=== PATIENT | female | born 1965 | race Caucasian/White ===

== ENCOUNTER → 2019-04-08 15:03 | Outpatient (CLI) | payer OTHER, SELFPAY ==
--- NOTE | 2019-04-08 | DI.MRI.S_ITS ---
PROCEDURE: MR HIP RT WO CON INDICATIONS: Unilateral primary osteoarthritis, right hip pain TECHNIQUE: Noncontrast coronal T1 spin echo and STIR through the bony pelvis. Coronal and axial T2 fast spin echo with fat saturation, sagittal T1 spin echo, and oblique axial T2 fast spin echo with fat saturation through the hip. COMPARISON: [facility] [place], [place], XR PELVIS WITH LATERAL HIP RIGHT, 04/06/2019, 11:25. FINDINGS: Image quality: Excellent. Bones and joints: Bone marrow of the pelvic ring and proximal femurs demonstrates normal overall signal. No intraosseous lesions or fractures. No avascular necrosis of the femoral heads. There is marked thinning of the right medial acetabular wall without a discrete fracture. The visualized lower lumbar spine appears normally aligned. Tendons and ligaments: The gluteus medius and minimus tendons appear intact, with mild tendinopathy and peritendinitis distally. The nearby proximal iliotibial band also appears intact. The iliopsoas tendon appears intact, without adjacent bursal fluid collections or evidence for impingement syndrome. The origin of the hamstring tendon is intact at the ischial tuberosity, as well as the associated sacrotuberous ligament. There is mild peritendinous edema along the proximal hamstring tendons. The straight and reflected heads of the rectus femoris muscle origin appear intact, as well as the conjoint tendon. The ligamentum teres appears thickened with minimal partial tearing at its foveal attachment. Labrum and cartilage: There is a linear partial tear of the anterosuperior labrum as well as mild degenerative tearing. There is also suspected small tear in the posterosuperior labrum. Cartilage surface of the femoral head demonstrates mild superior thinning. The alpha angle of the femur is within normal limits at less than 55 degrees. Soft tissues: Visualized muscles demonstrate normal bulk and internal signal. Quadratus femoris muscle demonstrates no internal edema to suggest ischiofemoral impingement. The proximal sciatic neurovascular bundle appears normal adjacent to the hamstring tendons. No free pelvic fluid. Bladder wall thickness is normal. Genitourinary structures and bowel loops appear normal where visualized. IMPRESSION: 1. Mild tearing of the anterosuperior labrum as well as suspected mild tearing of the posterosuperior labrum. 2. Thickening of the ligamentum teres suggestive of a prior sprain with minimal partial tearing at its foveal attachment. 3. Marked thinning of the medial acetabulum without a discrete fracture. Dictated by: Andres Evangelista M.D. on 04/08/2019 at 16:10 Approved by: Andres Evangelista M.D. on 04/08/2019 at 16:17
== END ==
PROVIDERS: Family Provider Family Medicine; PCP Family Medicine; Visit Provider Orthopaedic Surgery
DX: M16.11 Unilateral primary osteoarthritis, right hip (principal); M25.551 Pain in right hip; S73.191A Other sprain of right hip, initial encounter
CPT/HCPCS: 73721

== ENCOUNTER → 2021-04-09 11:38 | Outpatient (CLI) | payer OTHER, SELFPAY ==
--- NOTE | 2021-04-09 | DI.MRI.S_ITS ---
PROCEDURE: MR LUMBAR SPINE WO CON INDICATIONS: Radiculopathy, lumbar region TECHNIQUE: Noncontrast sagittal T1 spin echo and T2 fast echo, sagittal STIR, axial T1 and T2 fast spin echo through the lumbar spine. In cases with scoliosis, additional coronal T2 fast spin echo may be performed. COMPARISON: None. FINDINGS: Image quality: Excellent. Alignment and Curvature: There is normal bony alignment. Bone Marrow: Multilevel degenerative endplate sclerosis and spurring. Diffuse facet arthropathy. No acute fracture Spinal Cord: Conus medullaris terminates at the L1 level. Visualized cord demonstrates normal signal and size. Paraspinous Soft Tissues: No paravertebral masses. Posterior annular fissure at L4-L5 and L5-S1. T12-L1: Normal appearance. L1-L2: Normal appearance. L2-L3: Normal appearance. L3-L4: Mild canal narrowing. Partial effacement of both lateral recesses with bilaterally symmetric appearance. Mild bilateral foraminal narrowing. L4-L5: Mild dorsal epidural lipomatosis. Moderate canal narrowing. Partial effacement of both lateral recesses with bilaterally symmetric appearance. Mild right foraminal narrowing. Moderate left foraminal stenosis. L5-S1: No canal stenosis. Lateral recesses appear grossly patent. Moderate right foraminal narrowing with questionable nerve root compression [id number] left foraminal stenosis. IMPRESSION: Lower lumbar spondylosis and facet arthropathy Moderate L4-L5 canal narrowing. Moderate right L5-S1 foraminal stenosis. Dictated by: Marcelino Llanos M.D. on 04/09/2021 at 12:32 Approved by: Marcelino Llanos M.D. on 04/09/2021 at 12:41
== END ==
PROVIDERS: Family Provider Family Medicine; PCP Nurse Practitioner Family; Referring Provider Physical Medicine & Rehabilitation; Visit Provider Physical Medicine & Rehabilitation
DX: M47.26 Other spondylosis with radiculopathy, lumbar region (principal); M48.061 Spinal stenosis, lumbar region without neurogenic claudication; M48.07 Spinal stenosis, lumbosacral region
CPT/HCPCS: 72148

== ENCOUNTER → 2021-05-13 10:23 | Outpatient (CLI) | payer OTHER, SELFPAY ==
--- NOTE | 2021-05-13 | DI.MG.S_ITS ---
BILATERAL DIGITAL SCREENING MAMMOGRAM 3D/2D WITH CAD: 05/13/2021 CLINICAL: Routine screening. Family history of breast cancer. Comparison is made to exams dated: 10/27/2019 mammogram - outside facility, 03/31/2018 mammogram, and 02/23/2017 mammogram - outside location. There are scattered fibroglandular elements in both breasts. Current study was also evaluated with a Computer Aided Detection (CAD) system. No significant masses, calcifications, or other findings are seen in either breast. There has been no significant interval change. IMPRESSION: NEGATIVE There is no mammographic evidence of malignancy. A 1 year screening mammogram is recommended. This exam was interpreted at Station ID: [id number]. NOTE: For mammograms, a report in lay terms will be sent to the patient. Approximately 15% of breast malignancies will not be visualized mammographically. In the management of a palpable breast mass, a negative mammogram must not discourage biopsy of a clinically suspicious lesion. Electronically Signed By: Jacoby Hunt M.D., jr/bhanu:05/13/2021 14:03:44 letter sent: Normal Exam ACR BI-RADS Category 1: Negative [id number]
== END ==
PROVIDERS: Family Provider Family Medicine; PCP Nurse Practitioner Family; Referring Provider Nurse Practitioner Family; Visit Provider Nurse Practitioner Family
DX: Z12.31 Encounter for screening mammogram for malignant neoplasm of breast (principal); Z80.3 Family history of malignant neoplasm of breast
CPT/HCPCS: 77063; 77067

== ENCOUNTER → 2021-08-12 08:46 | Outpatient (CLI) | payer OTHER, SELFPAY ==
[2021-08-12 10:37] LABS: COVID19 -Nasal RAPID Negative (Negative)
== END ==
PROVIDERS: Family Provider Family Medicine; PCP Nurse Practitioner Family; Visit Provider Nurse Practitioner Family
DX: Z20.822 Contact with and (suspected) exposure to COVID-19 (principal)
CPT/HCPCS: 87635; C9803

== ENCOUNTER 2021-08-14 13:23 | Day surgery (SDC) | payer OTHER, SELFPAY ==
[2021-08-12 13:00] VITALS: BMI 25.4
[2021-08-14] VITALS (11 sets, daily range): BP systolic 138–166; BP diastolic 77–92; PULSE 70–110; RESP 11–18; TEMP 36.2–36.9; O2SAT 94–98; BMI 26.9
--- NOTE | 2021-08-14 | DI.RAD.S_ITS ---
PROCEDURE: XR LUMBAR SPINE 2-3V INDICATIONS: L4-5 LAMINECTOMY TECHNIQUE: 2 views of the lumbar spine were acquired. COMPARISON: None. FINDINGS: Intraoperative localizer at the left L4 and L5 lamina. Lower lumbar spine degenerative disc changes. IMPRESSION: Intraoperative localizer at the left L4 and L5 lamina. Dictated by: Terri Rosa MD, PhD on 08/14/2021 at 17:12 Approved by: Terri Rosa MD, PhD on 08/14/2021 at 17:13
[2021-08-14] MEDS: LACTATED RINGERS 1,000 ML 42 ML IV (14:07)
--- NOTE | 2021-08-14 15:08 | SUR.OPER ---
Prone on spine table, head in foam head support, padded chest and pelvic supports, gel pad at knees, lower legs supported by pillows; nipples, genitalia and toes free of pressure, arms secured on foam padded arm boards at <90 degrees abduction. Tape over blanket at thigh secured to table.
--- NOTE | 2021-08-14 15:09 | PM.PREOP ---
Pre-operative Note COVID-19 COVID-19 status: Negative Result date/Date tested (Pos, Neg/Pending): 08/13/21 Criteria for continued procedure: Expected advancement of disease process, Possibility delay results in more complex future surgery or treatment, Increased loss of function, Continuing or worsening of significant or severe pain, Deterioration of the patient's condition or overall health and Delay expected to result in less-positive ultimate med/surg outcome Interval Note History & Physical reviewed/Exam performed by Physician: Yes Changes to H&P: No
--- NOTE | 2021-08-14 15:12 | P.OP_ITS ---
Operative Date/Time/Diagnoses Date of procedure: 08/14/21 Time of procedure: 16:00 Pre-op diagnosis: 1. Lumbar spinal stenosis with neurogenic claudication 2. Lumbar spondylosis with radiculopathy Post-op diagnosis: same Procedure & Clinicians Procedure: 1. L4-5 lumbar laminectomy with partial facetecomy for decompression of spinal nerves 2. Utilization of microsurgical technique and operating microscope Same procedure as scheduled: Yes Indications: Patient has been having chronic back pain and worsening lumbar radiculopathy. Patient failed multiple conservative management with worsening pain weakness and numbness in her lower extremity. Patient has been having difficulty performing activity of daily living. After discussing risks benefits of treatment options, patient elected proceed with surgery. Surgeon: Michaelle Crowley Climate Change Risk Assessor: Reva Summers Click Yes if Unassisted: No Anesthesia Type: General Operative Notes Closure Type: primary Estimated Blood Loss (mL): 5 Blood products transfused: none Procedure in detail: Patient was seen in the preoperative area. Risks and benefits of the surgery was discussed with the patient. Informed consent was obtained from the patient and placed in the chart. Surgical site was marked. Patient was taken to the operative room. General anesthesia was administered. Prophylactic antibiotic was given to the patient less than 30 min before the incision was made. Patient was placed into a prone position on the Jay table. Patient's back was then prep ped and draped in the sterile fashion. Time-out was performed at this time. Using AP and lateral C-arm imaging the interval between L4-5 was identified and marked on patient's back. A 1 inch incision 1 in from midline was made on the right side. The fascia was incised in line with skin incision. Globus MARS retractors was placed inside the incision and docked onto the L4 lamina. Using microsurgical technique and operating microscope, a L4 laminectomy was performed using a Kerrison rongeur. Liagamentum flavum was resected at the site of the laminotomy. Patient was found have significant amount of hypertrophied ligamentum flavum which was carefully resected to decompress the central spinal canal as well as the bilateral lateral recess. Either side of the dura was exposed. Bilateral partial facetcomies was performed to further decompress the lateral recess. After the laminectomy was completed, the area medial lateral superior and inferior to the area of the laminectomy was inspected and explored using a micro curette. No other impinging structure was identified. The wound was then irrigated with sterile normal saline. 40 mg Depo-Medrol was placed into the epidural space. The deep fascia was closed with 1-0 Vicryl. The subcutaneous tissue was closed with 2-0 Vicryl. The skin was closed with 4-0 Monocryl. Patient tolerated the procedure well. There were no complications. Patient was transferred recovery room in stable condition. Complications: none Post-operative Condition: stable Disposition: PACU Plan for aftercare: Outpatient with bed
[2021-08-14] MEDS: CEFAZOLIN 2 GM/20 ML SYRINGE IV (16:04)
[2021-08-14] MEDS: BUPIVACAINE 0.25% (PF) 60 ML, EPINEPHrine 0.3 MG INJ (16:34)
[2021-08-14] MEDS: SODIUM CHLORIDE 0.9% 1,000 ML 100 ML IV (18:14)
[2021-08-14] MEDS: OXYCODONE IR 5 MG TABLET PO ×2 (18:16→21:19)
--- NOTE | 2021-08-14 18:21 | PC.NURSE ---
Rec'd pt from PACU to rm 213 at 1800. Pt stood and walked from stretcher to bed with CGA. Reports chronic left leg numbness has improved. Pt reports pain 6/10 on 0-10 pain scale. RA. Back Dsg CDI. Pt reports being thirsty, hungry. HTN noted. Administered prn oxycodone and provided dinner tray to pt. Will reassess.
[2021-08-14] MEDS: DOCUSATE 100 MG CAPSULE PO (20:27)
[2021-08-14] MEDS: SENNOSIDES 8.6 MG TABLET 17.2 MG PO (20:27)
[2021-08-14] MEDS: ATORVASTATIN 20 MG TABLET 10 MG PO (20:27)
[2021-08-14] MEDS: GABAPENTIN 300 MG CAPSULE PO (20:27)
[2021-08-14] MEDS: FLUVOXAMINE 100 MG 100 EACH PO (21:01)
[2021-08-14] MEDS: hydrOXYzine pamoate 25 MG CAPSULE PO (21:18)
[2021-08-15] MEDS: CEFAZOLIN 2 GM/20 ML SYRINGE IV ×2 (00:38→07:37)
[2021-08-15] MEDS: OXYCODONE IR 5 MG TABLET PO ×4 (00:55→11:58)
[2021-08-15 01:20] VITALS: BP 117/69; PULSE 68; RESP 17; TEMP 36.5; O2SAT 95
[2021-08-15] MEDS: SODIUM CHLORIDE 0.9% 1,000 ML 100 ML IV (04:04)
[2021-08-15] MEDS: hydrOXYzine pamoate 25 MG CAPSULE PO ×3 (04:04→11:59)
[2021-08-15 05:00] VITALS: BP 110/68; PULSE 73; RESP 17; TEMP 36.1; O2SAT 95
[2021-08-15] MEDS: PANTOPRAZOLE DR 40 MG TABLET PO (06:40)
--- NOTE | 2021-08-15 07:08 | P.DS_ITS ---
History of Present Illness History of Present Illness Date Patient Seen: 08/15/21 Time Patient Seen: 08:09 Chief complaint: SDC Narrative: Operative Date/Time/Diagnoses Date of procedure: 08/14/21 Time of procedure: 16:00 Pre-op diagnosis: 1. Lumbar spinal stenosis with neurogenic claudication 2. Lumbar spondylosis with radiculopathy Post-op diagnosis: same Procedure & Clinicians Procedure: 1. L4-5 lumbar laminectomy with partial facetecomy for decompression of spinal nerves 2. Utilization of microsurgical technique and operating microscope Same procedure as scheduled: Yes Indications: Patient has been having chronic back pain and worsening lumbar radiculopathy. Patient failed multiple conservative management with worsening pain weakness and numbness in her lower extremity.? Patient has been having difficulty performing activity of daily living.? After discussing risks benefits of treatment options, patient elected proceed with surgery. Surgeon: Michaelle Crowley Media Production Support Manager: Reva Summers Click Yes if Unassisted: No Anesthesia Type: General Operative Notes Closure Type: primary Estimated Blood Loss (mL): 5 Blood products transfused: none Discharge Providers Provider Discharge Date: 08/15/21 Primary care physician: HAYLEY Mckeon Consults: 08/14/21 17:40 Consult to Occupational Therapy Evaluate & Treat Comment: Physician Instructions: Evaluate and treat Consult to Physical Therapy Evaluate & Treat Comment: Physician Instructions: Evaluate and Treat Discharge provider: Reva Summers PA-C Summary Hospital Course Discharge Diagnosis: s/p lumbar laminectomy Hospital Course: Ms Maier's hospital course was unremarkable. On POD# 1 she was feeling well and wanted to go home. She was eating, ambulating, and voiding without difficulty or assistance. Exam Vital Signs (past 8 hours): - 08/15/21 01:20 08/15/21 05:00 Temperature 97.7 F 96.9 F L Pulse Rate 68 73 Respiratory Rate 17 17 Blood Pressure 117/69 110/68 Pulse Oximetry 95 95 Oxygen Delivery Method Room Air Oxygen Flow Rate 0 Narrative Exam Narrative: 5/5 strength in hip flexors, quadriceps, hamstrings, DF, PF, EHL bilaterally. Sensation to light touch intact throughout BLE. Calves soft, compressible, nontender and without palpable cords or masses. [facility] Medical History (Updated 08/12/21 @ 13:04 by Liane Smith RN) HLD (hyperlipidemia) HTN (hypertension) Spinal stenosis Surgical History (Updated 08/15/21 @ 07:36 by Reva Summers PA-C) Status post appendectomy Status post breast reduction Family History (Updated 10/24/16 @ 00:00 by Conversion Provider) Father Age: 82 Heart disease Mother Age: 80 Breast cancer Diabetes mellitus Hypertension High cholesterol Social History household members: spouse Smoking Status: Never smoker alcohol intake: current Discharge Assessment & Plan Assessment and Plan Assessment: s/p L4-5 lumbar laminectomy with partial facetectomy Plan of Treatment: Discharge home. Discharge Plan Discharge Plan Patient Disposition: Home Discharge orders & Medications Discharge Orders: Discharge (Order); Ordered 08/15/21 Ordered By: Reva Summers Prescriptions: New docusate sodium 100 mg Capsule 100 mg PO BID PRN (Reason: constipation) Qty: 60 1RF hydroxyzine pamoate 25 mg Capsule 25 mg PO Q4HR PRN (Reason: muscle spasm) Qty: 120 0RF oxycodone 5 mg Tablet 5 mg PO Q6H PRN (Reason: pain, severe) Qty: 30 0RF Continued sumatriptan succinate [Imitrex] 25 MG tablet 25 mg PRN PRN (Reason: Migraine Headache) Qty: 0 0RF pantoprazole 40 MG tablet,delayed release (DR/EC) 40 mg PO QDAY Qty: 0 0RF hydrochlorothiazide 25 MG tablet 25 mg PO QDAY Qty: 90 3RF lisinopril 10 MG tablet 10 mg PO QDAY Qty: 90 3RF cyclobenzaprine 10 MG tablet 10 mg PO HSP PRNQty: 90 3RF atorvastatin [Lipitor] 10 MG tablet 10 mg PO HS Qty: 90 3RF albuterol sulfate [Ventolin HFA] 90 MCG/PUFF HFA aerosol inhaler 1 puff INH PRN PRNQty: 3 3RF fluvoxamine 100 mg Tablet 100 mg PO BID 0RF gabapentin 300 mg Tablet 300 mg PO BEDTIME 0RF fluticasone propionate [Flonase Allergy Relief] 9.9 ML spray,suspension 9.9 spray Intranasal SEE INSTRUCTIONS 0RF Follow up/Referrals: Michaelle Crowley MD [Physician] - As previously scheduled (Follow up with Dr Crowley on 08/27/2021 @ 2:00 pm at [facility] in [place]. This visit may be converted to telehealth if desired; please call office to change.) Mariely Cosme ARNP [Primary Care Provider] - Diet/Activity/Treatments Diet: Diet as Tolerated Activity: Walk frequently! Ok for dancing and jogging in 1 week. No yoga or pilates until 6 week follow-up appointment. No deep bending (> 90 degrees) or twisting at the waist. No lifting > [address] if not taking oxycodone or hydroxyzine. Cold/Heat Therapy: Heat to back as needed for muscle spasm. Skin/Wound/Dressing Care Report to your healthcare provider any signs of infection, such as:: chills, fever, night sweats, increased pain, unusual drainage and unusual redness Dressing: May shower. Leave dressing in place for 3 days; may take off sooner if it becomes saturated inside. Leave steri strips in place until they fall off on their own. No bathing or otherwise soaking incision for weeks. Do not put any creams, ointments, or lotions on incision. Visit Report/Discharge Packet Instructions: DI for Laminectomy Stand Alone Forms: Surgery Discharge Discharge Data Primary Care Provider: Mariely Cosme Attending Provider: Michaelle Crowley
[2021-08-15] MEDS: DOCUSATE 100 MG CAPSULE PO (07:33)
[2021-08-15] MEDS: MAGNESIUM HYDROXIDE 30 ML UDC PO (07:33)
[2021-08-15 07:44] VITALS: BP 134/79; PULSE 71; RESP 18; TEMP 36.6; O2SAT 95
[2021-08-15] MEDS: lisinopriL 10 MG TABLET PO (08:07)
[2021-08-15] MEDS: hydroCHLOROthiazide 25 MG TABLET PO (08:07)
[2021-08-15 09:00] VITALS: BP 134/79; PULSE 71; RESP 18; TEMP 36.6; O2SAT 96
[2021-08-15 09:02] VITALS: O2SAT 96
--- NOTE | 2021-08-15 10:05 | PC.NURSE ---
Day shift: Pt having good morning and plan is to d/c today at 1145. Pain has been well controlled per MAR. Pt has been voiding but she states that the starting stream is taking longer to start. SANTIAGO Ardon made aware. VS WNL. RA 99%. CMS intact and Pt also reports that the numbness in her BLE's is better now post-op. High fall risk due to her recent falls at home. She agrees to not get OOB by herself. Encouraged to cough and deep breath.
--- NOTE | 2021-08-15 10:13 | OT.IP.EVAL ---
Current Diagnoses Spinal stenosis, lumbar region without neurogenic claudication (08/14/21) Other specified postprocedural states (08/14/21) Surgery Performed Operation Date: 08/14/21 15:00 Actual Procedures p L4-5 Laminectomy - Michaelle Crowley MD Past Medical History (Last Updated 08/12/21 @ 13:04 by Liane Smith RN) HLD (hyperlipidemia) HTN (hypertension) Spinal stenosis Surgical History Status post appendectomy Status post breast reduction Occupational Therapy Inpatient Evaluation/Re-Eval M1 PT/OT-IP Prior Functional Status Start: 08/15/21 12:25 Freq: NEEDED Status: Discharge Protocol: Document 08/15/21 11:10 AB (Rec: 08/15/21 12:44 AB [id number]) Medical Review Prior Functional Status Medical History Reviewed Yes Communication able to make needs known Mobility and Gait pt staetd that she is modified independent with all mobilities and ambulation without AD; pt has h/o falls and stated that she had 5 falls for the last 3 months; pt stated that she is very active: 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 5 steps wide rails to enter the house has 13 steps with wide rails to get to bedroom level Home Environment High Toilet,Walk in Shower, Built-In Shower Seat Home Equipment Front Wheel Walker Additional Social History Comment spouse works from home and can assist pt M1 PT/OT-IP Prior Functional Status Start: 08/15/21 14:51 Freq: NEEDED Status: Active Protocol: Document 08/15/21 14:51 CGR (Rec: 08/15/21 15:01 CGR [id number]) Medical Review Prior Functional Status Medical History Reviewed Yes Communication able to make needs known Mobility and Gait pt staetd that she is modified independent with all mobilities and ambulation without AD; pt has h/o falls and stated that she had 5 falls for the last 3 months; pt stated that 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 Pt states she takes care of her home and yard. Social History Household Members spouse Living Arrangements House Number of Floors (Floors) 3 or More Floors Number of Stairs To Enter/Railing? 5 steps wide rails to enter the house has 13 steps with wide rails to get to bedroom level Home Environment High Toilet,Walk in Shower, Built-In Shower Seat Home Equipment Front Wheel Walker Employment Status Retired Additional Social History Comment spouse works from home and can assist pt M2 OT-IP Current Condition Start: 08/15/21 14:51 Freq: Status: Active Protocol: Document 08/15/21 14:51 CGR (Rec: 08/15/21 15:01 CGR [id number]) Occupational Therapy Current Condition Current Condition Evaluation Date 08/15/21 Treatment Diagnosis L4-5 lami Diagnosis Onset Date 08/14/21 Post Operative Precautions Lumbar Precautions Log Roll,No Twisting,Limit Bending,Lifting Restriction of 10 lbs,Gait Belt above Incisional Area M3 OT- IP Subjective and Pain Start: 08/15/21 14:51 Freq: Status: Active Protocol: Document 08/15/21 14:51 CGR (Rec: 08/15/21 15:01 CGR [id number]) OT- Subjective Occupational Therapy Visit Type Type Initial Evaluation Visit Start Time 09:33 Visit Stop Time 10:13 Total Visit Minutes 40 OT Pain Assessment Pain When Pain Assessed At Rest Pain Present Pain Present Pain Reported Location Back Intensity 4 Scale Used Numeric (0 - 10) Management Techniques Distraction,Modification of Treatment,Re-positioning, Timing of Activity with Medications M4 OT- IP ADL's Start: 08/15/21 14:51 Freq: Status: Active Protocol: Document 08/15/21 14:51 CGR (Rec: 08/15/21 15:01 CGR [id number]) OT [id number] Comments OT Self-Feeding Comments Not meal time OT ADL-Grooming General Evaluation Grooming Ability Standby Assistance Areas Needing Assistance Combing/Brushing Hair,Face Washing Comments OT Grooming Comments standing at sink OT ADL-Oral Care General Eval Oral Care Ability Standby Assistance Areas of Assistance Brushing Teeth,Retrieving/Set- Up of Items Comments Oral Care Comments standing at sink OT ADL-Dressing General Eval Lower Body Dressing Ability Independent Areas Needing Assistance Socks Comments OT Dressing Comments Pt was able to doff and don socks seated in chair by brining foot to opposite knee without stretching her back. OT ADL-Toileting General Evaluation Toileting Ability Independent Areas Needing Assistance Manage Clothing,Perform Perineal Hygiene OT ADL-Bathing Comments OT Bathing Comments not performed M5 OT- IP IADL's Start: 08/15/21 14:51 Freq: Status: Active Protocol: Document 08/15/21 14:51 CGR (Rec: 08/15/21 15:01 R [id number]) OT-Instrumental Activities of Daily Living Deficits IADL Deficits Identified No Deficits Home Safety Awareness Awareness of Need for Assistance at Home Good Awareness Ability to Problem Solve Emergency Able to Problem Solve Situations Medication Management Medication Management No Deficits Identified Money Management Money Management No Deficits Identified Meal Preparation Meal Preparation No Deficits Identified Engineer Rf Deployment Engineer Rf Deployment No Deficits Identified Driving Driving Comments Pt understands that she should not drive till cleared by her MD. M6 OT- IP Functional Cognition Start: 08/15/21 14:51 Freq: Status: Active Protocol: Document 08/15/21 14:51 CGR (Rec: 08/15/21 15:01 R [id number]) Cognitive Factors Limiting Selfcare Function Cognitive Ability Level of Alertness Alert Patient Orientation Name,Age,Birthday,Month,Date, Year,Day of Week,Place, Situation Attention Span Ability Capable of Focused Attention, Capable of Sustained Attention Ability to Follow Commands Able to Follow Multi-Step Commands OT- Vision and Hearing OT- Hearing Assessment OT- Hearing Assessment WFL OT- Vision Assessment Visual Attentiveness WFL Occular Pursuits WFL Visual Convergence WFL Vision Assessment Comments Pt wears trifocals M7 OT- IP Mobility and Balance Start: 08/15/21 14:51 Freq: Status: Active Protocol: Document 08/15/21 14:51 CGR (Rec: 08/15/21 15:01 R [id number]) OT- Bed Mobility Assessment Rolling Type of Rolling Log Rolling,Roll to Right Level of Assistance Standby Assistance Supine to Sit Supine to Sit Assist Standby Assistance Scooting Scooting to Edge of Bed Independent OT-Transfer Assessment Sit to and From Stand Sit to and from Stand Standby Assistance Transfers Transfer Ability Standby Assistance Technique Transfer Destination Bed,Chair,Toilet Transfer Technique Stand Step Pivot Devices Transfer Assistive Devices Bed Rail,Front Wheeled Walker Comments Mobility Comments Pt ambulated around the room with the walker to the toilet, then to the sink for ADLs and returned to the chair. OT- Balance Assessment Sitting Balance and Reactions Static Sitting Balance Ability Normal Dynamic Sitting Balance Ability Normal M8 OT- IP Objective Assessments Start: 08/15/21 14:51 Freq: Status: Active Protocol: Document 08/15/21 14:51 CGR (Rec: 08/15/21 15:01 CGR [id number]) OT Gross Range of Motion Upper Extremity Range of Motion Assessment Within Functional Limits OT Strength Upper Extremity Strength Assessment Within Functional Limits OT- Coordination Assessment Upper Extremity Finger to Nose Test Within Functional Limits Finger Tapping Test Within Functional Limits OT-Muscle Tone Assessment Muscle Tone WNL Yes OT Sensation Assessment Edema Edema Absent M9 OT- IP Assessment and Plan Start: 08/15/21 14:51 Freq: Status: Active Protocol: Document 08/15/21 14:51 CGR (Rec: 08/15/21 15:01 CGR [id number]) OT Summary Assessment and Plan Potential Rehabilitation Potential Excellent Analytic Complexity at Evaluation Low Summary OT Impairments Pain,Balance,Functional Mobility Progress Towards Goals Safe For Discharge Assessment Summary Pt presents as a low complexity evaluation s/p admit for L4-5 lami. Pt reports 4/10 pain and is able to mobilize in the room. Pt educated on back precautions and need to take things slow and be safe at home. Pt is high energy with a positive attitude and will have difficulty slowing down at home. Discussed at length that walking on the treadmill, or gardening wouldn't be good activities after a back sx. Pt is ready for d/c home today. Frequency of Treatment Frequency Of Treatment Discharge Discharge Recommendations OT Discharge Recommendations Home with Assistance Transportation Needs at Discharge Private Vehicle
[2021-08-15] MEDS: ACETAMINOPHEN 325 MG TABLET 650 MG PO (11:00)
--- NOTE | 2021-08-15 11:10 | PT.IIE ---
Current Diagnoses Spinal stenosis, lumbar region without neurogenic claudication (08/14/21) Other specified postprocedural states (08/14/21) Surgery Performed Operation Date: 08/14/21 15:00 Actual Procedures p L4-5 Laminectomy - Michaelle Crowley MD Surgical History Status post appendectomy Status post breast reduction Medical History (Last Updated 08/12/21 @ 13:04 by Liane Smith RN) HLD (hyperlipidemia) HTN (hypertension) Spinal stenosis Physical Therapy Inpatient Evaluation/Re-Eval M1 PT/OT-IP Prior Functional Status Start: 08/15/21 12:25 Freq: NEEDED Status: Discharge Protocol: Document 08/15/21 11:10 AB (Rec: 08/15/21 12:44 AB [id number]) Medical Review Prior Functional Status Medical History Reviewed Yes Communication able to make needs known Mobility and Gait pt staetd that she is modified independent with all mobilities and ambulation without AD; pt has h/o falls and stated that she had 5 falls for the last 3 months; 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 5 steps wide rails to enter the house has 13 steps with wide rails to get to bedroom level Home Environment High Toilet,Walk in Shower, Built-In Shower Seat Home Equipment Front Wheel Walker Additional Social History Comment spouse works from home and can assist pt M2 PT-IP Current Condition Start: 08/15/21 12:25 Freq: NEEDED Status: Discharge Protocol: Document 08/15/21 11:10 AB (Rec: 08/15/21 12:44 AB [id number]) Physical Therapy Current Condition Current Condition Evaluation Date 08/15/21 Treatment Diagnosis s/p L4-5 laminectomy; difficulty in walking Onset Date 08/14/21 M3 PT-IP Subjective Start: 08/15/21 12:25 Freq: NEEDED Status: Discharge Protocol: Document 08/15/21 11:10 AB (Rec: 08/15/21 12:44 AB [id number]) Subjective Physical Therapy Visit Type Type Initial Evaluation Visit Start Time 11:10 Visit Stop Time 11:50 Total Visit Minutes 40 Number of ADOLESCENT SPECIALIST Visits 0 Physical Therapy Visit Comments Patient Comments pt is agreeable to do PT Therapy Pain Assessment Pain When Pain Assessed At Rest Pain Present Pain Present Pain Reported Location Back Intensity 4 Scale Used Numeric (0 - 10) Pain Management Techniques Distraction,Modification of Treatment,Re-positioning, Timing of Activity with Medications M4 PT-IP Mobility and Gait Start: 08/15/21 12:25 Freq: NEEDED Status: Discharge Protocol: Document 08/15/21 11:10 AB (Rec: 08/15/21 12:44 AB [id number]) PT-Bed Mobility Assessment Rolling Type of Rolling Log Rolling Level of Assist Standby Assistance Supine to Sit Supine to Sit Standby Assistance Sit to Supine Sit to Supine Standby Assistance PT-Transfer Assessment Sit to and From Stand Sit to and from Stand Standby Assistance,1 Person Assistance,Use of Upper Extremities Equipment Transfer Assistive Device Gait Belt,Front Wheeled Walker Orthotic/Prosthetic Devices or Brace: No Transfers Transfer Destination Chair Transfer Technique ambulated Transfer Ability Level of Assist Standby Assistance,1 Person Assistance,Use of Upper Extremities Comments Mobility Comments pt sitting on chair and agreed to do PT. reviewed back precautions with pt and log roll bed mobility. pt completed sit to stand SBA and ambulated in room using FWW ~ 15 ft to EOB SBA. pt presents with narrow NATALY and cues for positioning and posture and to slow down for safety. pt demonstrated bed mobility sit<>supine SBA. pt requested to use the toilet and ambulated using FWW SBA. completed toileting needs SBA and then ambulated from the toilet towards the sink using FWW SBA. able to maintain standing balance SBA while completing handwashing. pt agreed to ambulate more and completed ~150 ft using FWW SBA occasionally cues for safety. completed up/down steps using R rail: initially holding on to one rail with one hand and pt completed step through pattern SBA. educated on safety since pt h/o falls have been during stair climbing. pt completed stairs again holding on to R rail with both hands and completed side stepping step to pattern for safety and pt is josh. pt agreed. pt ambulated back to her room using FWW SBA. sat on chair. positioned. call light and table placed within reach. pt spouse came in towards end of PT session. educated spouse on pt's back precautions and log roll bed mobility and pt's safety and techniques with bed mobility, sit to stand, ambulation and stair climbing. pt and spouse without any other concerns. Gait Assessment Gait Gait Assistance Required: Standby Assistance Distance (Feet) 150 Able to Maintain Weight Bearing Status Yes During Gait Assistive Devices Assistive Device Gait Belt,Front Wheeled Walker Orthotic/Prosthetic Devices or Brace: No Factors Limiting Gait Function Factors Limiting Gait Function Decreased Sensation,Limited Range of Motion,Pain,Poor Balance,Poor Safety Awareness Stair Climbing Assessment Evaluation Level of Assist On Stairs Standby Assistance Devices Stair Climbing Assistive Devices Right Railing Technique/Endurance Stair Climbing Direction Ascend and Descend Stair Climbing Technique Step Over Step,Step to Step Number of Steps Climbed 3 Query Text: Stair Climbing Set # Repetitions (reps) 2 PT-Balance Assessment Sitting Balance and Reactions Static Sitting Balance Ability Normal Dynamic Sitting Balance Ability Normal Standing Balance and Reactions Static Standing Balance Ability Fair Dynamic Standing Balance Ability Fair Device Used FWW M5 PT-IP Objective Assessments Start: 08/15/21 12:25 Freq: NEEDED Status: Discharge Protocol: Document 08/15/21 11:10 AB (Rec: 08/15/21 12:44 AB [id number]) Orientation Orientation/Cognition Level of Alertness Alert Orientation Name,Age,Birthday,Month,Date, Year,Day of Week,Place, Situation Language Function Ability No Deficits Noted Safety Awareness Decreased Safety Awareness Memory Description No Deficits Noted Gross Range of Motion Lower Extremity ROM Assessment Within Functional Limits Strength Lower Extremity Strength Assessment Within Functional Limits Coordination Assessment Gross Coordination Gross Coordination WNL Sensation Assessment Sensation Gross Sensation Left LE Impaired Sensation Description Numbness Comments Sensation Comments L toes 2-5 numbness Muscle Tone Muscle Tone WNL Yes M6 PT-IP Treatment Start: 08/15/21 12:25 Freq: NEEDED Status: Discharge Protocol: Document 08/15/21 11:10 AB (Rec: 08/15/21 12:44 AB [id number]) Physical Therapy Treatment Education Education Provided Precautions,Weight Bearing Status,Safety M7 PT-IP Assessment and Plan Start: 08/15/21 12:25 Freq: NEEDED Status: Discharge Protocol: Document 08/15/21 11:10 AB (Rec: 08/15/21 12:44 AB [id number]) PT Summary Assessment and Plan Potential Rehabilitation Potential Good Status of Condition at Evaluation Stable Summary Impairments Pain,ROM,Strength,Balance, Coordination,Sensation,Tone, Cognition,Bed Mobility, Transfers,Gait,Activity Tolerance Assessment Summary pt requiring SBA with mobility using fWW. pt plans to go home and spouse to assist her. pt may go home when stable. Goals Bed Mobility Goal Independent Transfer Goal Independent,Front Wheeled Walker Gait Goal Independent,Front Wheel Walker Gait Distance 250 Other Goals up/down 13 steps 1 rail mod i Days to Meet Goals 3 Frequency of Treatment Frequency Of Treatment Twice a Day Treatment Plan Physical Therapy Treatment Plan Bed Mobility Training,Transfer Training,Gait Training, Therapeutic Exercise,Balance Retraining,Post Op Education, Discharge Planning,Hot or Cold Pack,Neuromuscular Re-ed, Coordination Retraining,Manual Therapy Precautions Lumbar Precautions Log Roll,No Twisting,Limit Bending,Lifting Restriction of 10 lbs,Gait Belt above Incisional Area Recommendations To Nursing Amount of Assist Needed 1 Person Assist Discharge Recommendations PT Discharge Recommendations Home with Assistance Transportation Needs at Discharge Private Vehicle
--- NOTE | 2021-08-15 12:26 | CM.IDA ---
Initial DCP Assessment Note Pt is a 55 yo female, resident of [place], [place] now POD#1 s/p lumbar laminectomy by Dr Crowley PCP: Mariely Cosme and Edison Almaguer Payer: [facility] Reviewed chart, pt discussed in multidisciplinary rounds this morning. Therapy has cleared pt for return home w/family to assist and pt has planned for home, DC order from Ortho has already been initiated this morning. Patient planning to leave at 1145, spouse to transport back via [place]ov and ferry back to [place] No needs expected from DC planning team although will remain available in case this changes today. JANICE Garcia Discharge Planning/Care Management CM Discharge Assessment Start: 08/15/21 12:16 Freq: Status: Active Protocol: Document 08/15/21 12:16 HERMAN (Rec: 08/15/21 12:26 HERMAN [id number]) Discharge Planning Assessment Assigned Aerial Photograph Interpreter JANICE Shen DPOA/Assigned Designee Name Bill Maier, spouse Contact Information [phone] Advance Directives? Yes Advance Directives on File No History Provided By Patient Prior Living Arrangements House Household Members spouse Type of transporation used prior to Drives own vehicle admit Independent with ADL's Yes Is patient alert and oriented? Yes Barriers to Discharge No Comment No outpatient therapy, s/p L4- 5 lumbar laminectomy with partial facetectomy Discharge Plan Home Transportation Arrangement family Referrals Initiated None needed
--- NOTE | 2021-08-15 12:35 | CM.DANOTE ---
This nurse provided D/C education and teaching regarding fall safety, opioid med safety, and post surgery to pt and spouse. pt and spouse verbally demonstrated understanding of teaching. Pt requested dose of oxycodone and hydroxyzine for pain after PT session prior to D/C. Pt departed on wheelchair and was brought to ED frontdoor where spouse is waiting. Pt was assisted to the car.
== END 2021-08-15 11:55 | disposition home or self-care (01) ==
LOC: OR 13:37 → AC 17:44
PROVIDERS: Family Provider Family Medicine; PCP Nurse Practitioner Family; Referring Provider Orthopaedic Surgery Orthopaedic Surgery of the Spine; Visit Provider Orthopaedic Surgery Orthopaedic Surgery of the Spine
PROC: (CPT 63047; principal; 2021-08-14 15:00)
DX: M48.062 Spinal stenosis, lumbar region with neurogenic claudication (principal); M47.26 Other spondylosis with radiculopathy, lumbar region
CPT/HCPCS: 63047; 72100; 76000; 97161; 97165; 97530; 97535; J0171; J0690; J1100; J1885; J2405; J2704; J2920; J3010

== ENCOUNTER 2021-11-22 11:49 | Emergency (ER) | payer OTHER, SELFPAY ==
[2021-08-14 18:44] VITALS: BMI 26.9
[2021-11-22 12:17] VITALS: BP 164/97; PULSE 77; RESP 16; TEMP 36.6; O2SAT 97; BMI 26.1
--- NOTE | 2021-11-22 12:21 | DI.RAD.S_ITS ---
PROCEDURE: XR CHEST 1V INDICATIONS: chest pain TECHNIQUE: One view of the chest was acquired. COMPARISON: None. FINDINGS: Surgical changes and devices: None. Lungs and pleura: Lungs are clear. No pleural effusions or pneumothorax. Mediastinum: Mediastinal contours appear normal. Heart size is normal. Bones and chest wall: No suspicious bony lesions. Overlying soft tissues appear unremarkable. IMPRESSION: No acute cardiopulmonary pathology. Dictated by: Jewel Cohen M.D. on 11/22/2021 at 13:25 Approved by: Jewel Cohen M.D. on 11/22/2021 at 13:25
--- NOTE | 2021-11-22 12:22 | DI.CT.S_ITS ---
PROCEDURE: CT HEAD/BRAIN WO CON INDICATIONS: syncope 6 days ago, hit head, +LOC TECHNIQUE: Noncontrast 4.5 mm thick angled axial sections acquired from the foramen magnum to the vertex, with coronal and sagittal reformats. For radiation dose reduction, the following was used: automated exposure control, adjustment of mA and/or kV according to patient size. COMPARISON: None. FINDINGS: Image quality: Excellent. CSF spaces: Basal cisterns are patent. No extra-axial fluid collections. Ventricles are normal in size and shape. Brain: No midline shift. No intracranial masses or hemorrhage. Sanchez-white matter interface is normal. Skull and face: Calvarium and visualized facial bones are intact, without suspicious lesions. Sinuses: Visualized sinuses and mastoids are clear. IMPRESSION: No CT evidence acute intracranial abnormality. No acute skull fracture. Dictated by: Jewel Cohen M.D. on 11/22/2021 at 13:24 Approved by: Jewel Cohen M.D. on 11/22/2021 at 13:25
--- NOTE | 2021-11-22 12:26 | DI.CT.S_ITS ---
PROCEDURE: CT CERVICAL SPINE WO CON INDICATIONS: syncope 6 days ago, hit head, +LOC TECHNIQUE: Noncontrast 3 mm thick sections acquired from the skull base to the T4 level. Sagittal and coronal reformats were then constructed. For radiation dose reduction, the following was used: automated exposure control, adjustment of mA and/or kV according to patient size. COMPARISON: None. FINDINGS: Image quality: Excellent. Bones: No fractures or dislocations. Mild degenerative endplate changes throughout cervical spine is seen more prominent at C5-6 and C6-7 levels. No significant central canal stenosis or neural foraminal narrowing. Visualized superior ribs are intact. Soft tissues: Prevertebral soft tissues are normal in thickness. No paravertebral hematomas. No apical pneumothoraces. IMPRESSION: 1. No cervical spine fracture or dislocation. 2. Mild degenerative disc disease in cervical spine as above. Dictated by: Jewel Cohen M.D. on 11/22/2021 at 13:19 Approved by: Jewel Cohen M.D. on 11/22/2021 at 13:24
[2021-11-22 12:27] VITALS: PULSE 64; RESP 19; O2SAT 98
[2021-11-22 12:30] VITALS: BP 141/82; PULSE 67; RESP 16; O2SAT 100
[2021-11-22 12:39] VITALS: BP 131/81; PULSE 68; RESP 19; O2SAT 100
[2021-11-22 12:42] LABS: Prothrombin Time 10.7 SECONDS (10.1-12.7)
[2021-11-22 12:44] LABS: PTT Partial Thromboplastin Tim 35 SECONDS (26.4-36.2)
--- NOTE | 2021-11-22 12:44 | DI.RAD.S_ITS ---
PROCEDURE: XR KNEE RT 3V INDICATIONS: Fall w/knee pain TECHNIQUE: 3 views of the knee were acquired. COMPARISON: [facility], , KNEE 1-2 VIEWS RIGHT, 01/05/2017, 12:10. FINDINGS: Bones: Patient is status fractures or dislocation post lateral femoral tibial compartment arthroplasty. No evidence of gross hardware loosening or failure. There is no acute fracture or dislocation. No patellar subluxation. No suspicious bony lesions. Soft tissues: Moderate suprapatellar joint effusion is seen. No suspicious soft tissue calcifications. IMPRESSION: Prior lateral femoral tibial compartment arthroplasty. Anatomic right knee alignment. No gross acute fracture or dislocation. Moderate suprapatellar joint effusion. Dictated by: Jewel Cohen M.D. on 11/22/2021 at 14:14 Approved by: Jewel Cohen M.D. on 11/22/2021 at 14:30
--- NOTE | 2021-11-22 12:46 | PC.NURSE ---
Pt reports having syncopal episode 6 days ago. No prodromal symptoms beforehand. Has bruising to left eyebrow, nose. Reports big knot on forehead and back of head that have since resolved. Also had chest pain and left arm tingling then, that pt currently denies. Continuing right knee pain with bruising and swelling present. Pt has knee brace on.
[2021-11-22 12:47] LABS: Add Manual Diff / Slide Review NO; Basophils Absolute Auto 100 /uL (0-100); Basophils Percent Auto 1.5 % (0-2); Eosinophils Absolute Auto 200 /uL (0-450); Hematocrit 39.5 % (36-46); Hemoglobin 13.7 g/dL (12.0-16.0); Lymphocytes Absolute Auto 1200 /uL (1100-4500); Mean Corpuscular HGB Conc 34.6 % (30-36); Mean Corpuscular Hemoglobin 30.6 PG (26-34); Mean Corpuscular Volume 88.3 fL (80-100); Monocytes Absolute Auto 700 /uL (0-900); Neutrophils Absolute Auto 2700 /uL (1500-7000); Neutrophils Percent Auto 55.5 % (50-75); Platelet Count 281 X10^3/uL (150-400); Red Blood Cell Count 4.48 X10^6/uL (4.0-5.2); Red Cell Distribution Width 13.7 % (11.6-14.8); White Blood Cell Count 4.8 X10^3/uL (4.5-11.0)
[2021-11-22 12:57] LABS: Alanine Aminotransferase 25 IU/L (<35); Albumin 4.6 g/dL (3.5-5.0); Albumin Globulin Ratio 1.5 (1.0-2.8); Alkaline Phosphatase 60 U/L (38-126); Aspartate Aminotransferase 40 IU/L (14-36); BUN Creatinine Ratio 16.7 (6-22); Bilirubin Total 0.3 mg/dL (0.2-1.3); Blood Urea Nitrogen 14 mg/dL (7-17); Carbon Dioxide 32 mmol/L (22-32); Chloride 94 mmol/L (98-107); Creatine Kinase 86 U/L (30-135); Estimated Glomerular Filt Rate > 60 mL/min (>60); Globulin 3.1 g/dL (1.7-4.1); Glucose 94 mg/dL (70-100); HEMOLYSIS < 15 (0-50); Lipase 100 U/L (23-300); Magnesium 2.2 mg/dL (1.6-2.3); Potassium 3.5 mmol/L (3.4-5.1); Sodium 132 mmol/L (137-145); Total Protein 7.7 g/dL (6.3-8.2)
[2021-11-22 13:09] LABS: Troponin I < 0.012 ng/mL (0.01-0.034)
--- NOTE | 2021-11-22 14:09 | ED.SYNCOPE ---
HPI - Syncope General Chief Complaint: Syncope Stated Complaint: syncope episode and struck head 6 days ago. Time Seen by Provider: 11/22/21 12:23 History of Present Illness HPI narrative: This woman is in baseline good health and she had an event last weekend where she fainted and injured herself. She got out of bed in the middle the night last Thursday to take the dog out and to go to the bathroom herself. A few steps after getting out of bed she became very dizzy lightheaded and had to lean against the wall and then fell to the ground. Her developed and confirmed that she was okay and asked her to wait there well he went to the dog out. Within 60 seconds of taking the dog out he turned inside his leaving the bedroom walking towards him and she again is syncopized fell to the ground and hit her head with great force against the wall and fell backwards. She was not unconscious but was dazed. The patient has no recollection of the events following the initial fall until after she had fallen the 2nd time. She has been very nauseated and feeling very unsteady on her feet and was very sore for the 1st few days. This is the 1st medical encounter since that fall. She denies numbness weakness or tingling. She denies dizziness or vomiting she endorses increased sleepiness. No more fainting. Never did she have chest pain or infectious symptoms. No abdominal pain or other injuries. She did hurt her right knee to some small degree and has a follow-up arranged for her orthopedist in about 2 weeks. Related Data Home Medications Medication Instructions Recorded Confirmed pantoprazole 40 mg tablet,delayed 40 mg PO QDAY ##0 10/13/16 08/14/21 release sumatriptan succinate 25 mg tablet 25 mg PRN PRN Migraine Headache ##0 10/13/16 08/14/21 (Imitrex) fluticasone propionate 50 9.9 spray intranasal SEE 08/14/21 08/14/21 mcg/actuation nasal INSTRUCTIONS spray,suspension (Flonase Allergy Relief) fluvoxamine 100 mg tablet 100 mg PO BID 08/14/21 08/14/21 gabapentin 300 mg tablet 300 mg PO BEDTIME 08/14/21 08/14/21 Previous Rx's Medication Instructions Recorded hydrochlorothiazide 25 mg tablet 25 mg PO QDAY #90 tabs 11/19/16 albuterol sulfate 90 mcg/actuation 1 puff INH PRN PRN #3 inhalations 02/02/17 aerosol inhaler (Ventolin HFA) atorvastatin 10 mg tablet (Lipitor) 10 mg PO HS #90 tabs 02/02/17 cyclobenzaprine 10 mg tablet 10 mg PO HSP PRN #90 tabs 02/02/17 lisinopril 10 mg tablet 10 mg PO QDAY #90 tabs 02/02/17 docusate sodium 100 mg capsule 100 mg PO BID PRN constipation #60 08/15/21 caps hydroxyzine pamoate 25 mg capsule 25 mg PO Q4HR PRN muscle spasm 08/15/21 #120 caps oxycodone 5 mg tablet 5 mg PO Q6H PRN pain, severe #30 08/15/21 tabs Allergies Allergy/AdvReac Type Severity Reaction Status Date / Time No Known Allergies Allergy Unknown Verified 08/14/21 13:48 [NO KNOWN ALLERGIES] Review of Systems Review of Systems Narrative: Complete review of systems negative other than as noted above. Patient History Medical History HLD (hyperlipidemia) HTN (hypertension) Spinal stenosis Surgical History Status post appendectomy Status post breast reduction Family History Father Age: 83 Heart disease Mother Age: 81 Breast cancer Diabetes mellitus Hypertension High cholesterol Social History household members: spouse Smoking Status: Never smoker alcohol intake: current Smoking Status: Never smoker alcohol intake frequency: a few times a week Substance Use Type: does not use Exam Narrative Exam Narrative: GENERAL: Alert, cooperative and in no distress. HEAD: Atraumatic. Normocephalic. EYES: Sclera are clear without icterus. Extraocular movements are full. ENT: No rhinorrhea. Oropharynx is moist. Mouth exam is benign. NECK: Supple. Full range of motion. No midline tenderness CARDIOVASCULAR: Normal rate and rhythm without murmur gallop or rub. RESPIRATORY: Clear to auscultation. Breath sounds equal bilaterally. No wheezes, rales, or rhonchi. GASTROINTESTINAL: Abdomen soft, non-tender, nondistended. EXTREMITIES: No edema, full range of motion. No obvious trauma. BACK: Normal inspection, no CVA tenderness. NEURO: Nonfocal examination, normal speech, normal gait. SKIN: No rash or erythema of visible areas PSYCH: Normally oriented. Normal range of affect. Appropriate behavior Initial Vital Signs Initial Vital Signs: Vital Signs Temperature 97.8 F 11/22/21 12:17 Pulse Rate 77 11/22/21 12:17 Respiratory Rate 16 11/22/21 12:17 Blood Pressure 164/97 H 11/22/21 12:17 Pulse Oximetry 97 11/22/21 12:17 Oxygen Delivery Method 11/22/21 12:17 Course Course Course Narrative: I was able to ambulate the patient at the bedside she is a little bit unsteady but has a narrow based gait. She has nonfocal neurologic examination. I think discharged home with outpatient follow-up for further evaluation is warranted. Orders Ordered: ED Orders 11/22/21 12:20 Complete Blood Count AUTO DIFF Stat Comprehensive Metabolic Panel Stat Lipase Stat Magnesium Stat Partial Thromboplastin Time Stat Prothrombin Time INR Stat Troponin & CK Cardiac Panel Stat 11/22/21 12:21 XR chest 1V Stat EKG-12 Lead Stat 11/22/21 12:22 CT head/brain wo con Stat 11/22/21 12:26 CT cervical spine wo con Stat 11/22/21 12:44 XR knee RT 3V Stat Vital Signs Vital signs: Vital Signs - 8 hr 11/22/21 12:17 11/22/21 12:27 11/22/21 12:30 Temperature 97.8 F Pulse Rate 77 64 Respiratory Rate 16 19 Blood Pressure 164/97 H 141/82 H Pulse Oximetry 97 98 Oxygen Delivery Method Room Air 11/22/21 12:30 11/22/21 12:39 11/22/21 12:39 Temperature Pulse Rate 67 68 Respiratory Rate 16 19 Blood Pressure 131/81 Pulse Oximetry 100 100 Oxygen Delivery Method MDM - Syncope Lab Data Result diagrams: 11/22/21 12:20 11/22/21 12:20 Labs: Lab Results 11/22/21 11/22/21 11/22/21 Range/Units 12:20 12:20 12:20 WBC 4.8 (4.5-11.0) X10^3/uL RBC 4.48 (4.0-5.2) X10^6/uL Hgb 13.7 (12.0-16.0) g/dL Hct 39.5 (36-46) % MCV 88.3 (80-100) fL MCH 30.6 (26-34) PG MCHC 34.6 (30-36) % RDW 13.7 (11.6-14.8) % Plt Count 281 (150-400) X10^3/uL Neut % (Auto) 55.5 (50-75) % Lymph % (Auto) 24.0 L (25-40) % [place] % (Auto) 15.0 H (3-14) % Eos % (Auto) 4.0 (2-4) % Baso % (Auto) 1.5 (0-2) % Neut # (Auto) 2700 (0110-6304) /uL Lymph # (Auto) 1200 (0201-7524) /uL [place] # (Auto) 700 (0-900) /uL Eos # (Auto) 200 (0-450) /uL Baso # (Auto) 100 (0-100) /uL PT 10.7 (10.1-12.7) SECONDS INR 1.0 (0.9-1.3) APTT 35 (26.4-36.2) SECONDS Sodium 132 L (137-145) mmol/L Potassium 3.5 (3.4-5.1) mmol/L Chloride 94 L (98-107) mmol/L Carbon Dioxide 32 (22-32) mmol/L BUN 14 (7-17) mg/dL Creatinine 0.84 (0.52-1.04) mg/dL Estimated GFR > 60 (>60) mL/min BUN/Creatinine Ratio 16.7 (6-22) Glucose 94 (70-100) mg/dL Calcium 9.0 (8.4-10.2) mg/dL Magnesium 2.2 (1.6-2.3) mg/dL Total Bilirubin 0.3 (0.2-1.3) mg/dL AST 40 H (14-36) IU/L ALT 25 (<35) IU/L Alkaline Phosphatase 60 (38-126) U/L Total Creatine Kinase 86 (30-135) U/L CK-MB (CK-2) TNP CK-MB (CK-2) Rel Index TNP Troponin I < 0.012 (0.01-0.034) ng/mL Total Protein 7.7 (6.3-8.2) g/dL Albumin 4.6 (3.5-5.0) g/dL Globulin 3.1 (1.7-4.1) g/dL Albumin/Globulin Ratio 1.5 (1.0-2.8) Lipase 100 (23-300) U/L Imaging Data Chest x-ray: Radiologist's Impression: IMPRESSION:? No acute cardiopulmonary pathology. ? ? Dictated by: Jewel Cohen M.D. on 11/22/2021 at 13:25 ? ? Approved by: Jewel Cohen M.D. on 11/22/2021 at 13:25 ? CT scan - head: Radiologist's Impression: IMPRESSION:? No CT evidence acute intracranial abnormality.? No acute skull fracture. ? ? Dictated by: Jewel Cohen M.D. on 11/22/2021 at 13:24 ? ? Approved by: Jewel Cohen M.D. on 11/22/2021 at 13:25 ? CT - cervical spine: Radiologist's Impression: IMPRESSION:? 1. No cervical spine fracture or dislocation. 2. Mild degenerative disc disease in cervical spine as above. ? ? ? Dictated by: Jewel Cohen M.D. on 11/22/2021 at 13:19 ? ? Approved by: Jewel Cohen M.D. on 11/22/2021 at 13:24 ? Discharge Plan Departure Patient Disposition: Home Clinical Impression: Concussion, Contusion of knee, left, Syncope Instructions: DI for Concussion, DI for Syncope in Adults (Fainting), DI for Postconcussion Syndrome Activity Restrictions/Additional Instructions: Thank you for interesting as with your care today. I am sorry the head this fall and injury. I think we have pretty compelling evidence that you have a concussion. I think you should be at rest both physical and cognitive through this coming Thursday. Prior to returning to activity I recommend you follow-up with your primary care provider to discuss ongoing management of the symptoms. Extra sleep is good for you and healthy in helping her brain heel. Keep yourself well hydrated. Also discussed with your provider for the fainting event that initiated this whole cascade to see if further investigation may be warranted. Prescriptions: No Action sumatriptan succinate [Imitrex] 25 MG tablet 25 mg PRN PRN (Reason: Migraine Headache) Qty: 0 pantoprazole 40 MG tablet,delayed release (DR/EC) 40 mg PO QDAY Qty: 0 hydrochlorothiazide 25 MG tablet 25 mg PO QDAY Qty: 90 3RF lisinopril 10 MG tablet 10 mg PO QDAY Qty: 90 3RF cyclobenzaprine 10 MG tablet 10 mg PO HSP PRNQty: 90 3RF atorvastatin [Lipitor] 10 MG tablet 10 mg PO HS Qty: 90 3RF albuterol sulfate [Ventolin HFA] 90 MCG/PUFF HFA aerosol inhaler 1 puff INH PRN PRNQty: 3 3RF fluvoxamine 100 mg Tablet 100 mg PO BID gabapentin 300 mg Tablet 300 mg PO BEDTIME fluticasone propionate [Flonase Allergy Relief] 9.9 ML spray,suspension 9.9 spray Intranasal SEE INSTRUCTIONS docusate sodium 100 mg Capsule 100 mg PO BID PRN (Reason: constipation) Qty: 60 1RF hydroxyzine pamoate 25 mg Capsule 25 mg PO Q4HR PRN (Reason: muscle spasm) Qty: 120 0RF oxycodone 5 mg Tablet 5 mg PO Q6H PRN (Reason: pain, severe) Qty: 30 0RF Referrals: Mariely Cosme ARNP [Primary Care Provider] -
== END 2021-11-22 14:22 | disposition home or self-care (01) ==
PROVIDERS: Emergency Provider Family Medicine Addiction Medicine; Family Provider Family Medicine; PCP Nurse Practitioner Family
DX: S06.0X9A Concussion with loss of consciousness of unspecified duration, initial encounter (principal); S80.02XA Contusion of left knee, initial encounter; R55 Syncope and collapse; W22.8XXA Striking against or struck by other objects, initial encounter
CPT/HCPCS: 36415; 70450; 71045; 72125; 73562; 80053; 82550; 83690; 83735; 84484; 85025; 85610; 85730; 93005; 93010; 99284

== ENCOUNTER → 2022-05-29 08:39 | Outpatient (CLI) | payer OTHER, SELFPAY ==
[2021-08-14 18:44] VITALS: BMI 26.9
--- NOTE | 2022-05-29 | DI.MG.S_ITS ---
BILATERAL DIGITAL SCREENING MAMMOGRAM 3D/2D WITH CAD: 05/29/2022 CLINICAL: Routine screening. Family history of breast cancer. Comparison is made to exams dated: 05/13/2021 mammogram - [facility], 10/27/2019 mammogram - outside facility, and 03/31/2018 mammogram. There are scattered areas of fibroglandular density in both breasts (category b / 25%-50% glandular tissue). Current study was also evaluated with a Computer Aided Detection (CAD) system. No significant masses, calcifications, or other findings are seen in either breast. There has been no significant interval change. IMPRESSION: NEGATIVE There is no mammographic evidence of malignancy. A 1 year screening mammogram is recommended. Based on the Tyrer Cuzick model (a risk assessment model) the patient's lifetime risk is 5.8% and her 10 year risk is 2.0%. According to the ACR, ACS, and NCCN guidelines, an annual breast MRI exam along with mammogram is recommended if the patient's lifetime risk is 20% or greater. This exam was interpreted at Station ID: [id number]. NOTE: For mammograms, a report in lay terms will be sent to the patient. Approximately 15% of breast malignancies will not be visualized mammographically. In the management of a palpable breast mass, a negative mammogram must not discourage biopsy of a clinically suspicious lesion. Electronically Signed By: Jacoby Hunt M.D., jr/bhanu:05/29/2022 11:48:26 letter sent: Normal Exam ACR BI-RADS Category 1: Negative 3341F
== END ==
PROVIDERS: Family Provider Family Medicine; PCP Nurse Practitioner Family; Referring Provider Nurse Practitioner Family; Visit Provider Nurse Practitioner Family
DX: Z12.31 Encounter for screening mammogram for malignant neoplasm of breast (principal); Z80.3 Family history of malignant neoplasm of breast
CPT/HCPCS: 77063; 77067

== ENCOUNTER → 2024-01-19 10:32 | Outpatient (CLI) | payer SELFPAY ==
[2021-08-14 18:44] VITALS: BMI 26.9
--- NOTE | 2024-01-19 | DI.MG.S_ITS ---
BILATERAL DIGITAL SCREENING MAMMOGRAM 3D/2D WITH CAD: 01/19/2024 CLINICAL: Routine screening. Family history of breast cancer. Comparison is made to exams dated: 05/29/2022 mammogram, 05/13/2021 mammogram - [facility], and 10/27/2019 mammogram - outside facility. There are scattered areas of fibroglandular density in both breasts (category b / 25%-50% glandular tissue). Current study was also evaluated with a Computer Aided Detection (CAD) system. No significant masses, calcifications, or other findings are seen in either breast. There has been no significant interval change. IMPRESSION: NEGATIVE There is no mammographic evidence of malignancy. A 1 year screening mammogram is recommended. Based on the Tyrer Cuzick model (a risk assessment model) the patient's lifetime risk is 5.6% and her 10 year risk is 2.1%. According to the ACR, ACS, and NCCN guidelines, an annual breast MRI exam along with mammogram is recommended if the patient's lifetime risk is 20% or greater. This exam was interpreted at Station ID: [id number]. NOTE: For mammograms, a report in lay terms will be sent to the patient. Approximately 15% of breast malignancies will not be visualized mammographically. In the management of a palpable breast mass, a negative mammogram must not discourage biopsy of a clinically suspicious lesion. Electronically Signed By: Alberto haynes/bhanu:01/19/2024 12:55:31 letter sent: Normal Exam ACR BI-RADS Category 1: Negative [id number]
== END ==
PROVIDERS: Family Provider Family Medicine; PCP Family Medicine; Referring Provider Family Medicine; Visit Provider Family Medicine
DX: Z12.31 Encounter for screening mammogram for malignant neoplasm of breast (principal); Z80.3 Family history of malignant neoplasm of breast; R92.323 Mammographic fibroglandular density, bilateral breasts
CPT/HCPCS: 77063; 77067

== ENCOUNTER → 2024-09-18 14:15 | Outpatient (CLI) | payer OTHER, SELFPAY ==
[2021-08-14 18:44] VITALS: BMI 26.9
--- NOTE | 2024-09-18 | DI.MRI.S_ITS ---
PROCEDURE: MR CERVICAL SPINE WO CON INDICATIONS: screening TECHNIQUE: Noncontrast sagittal T1 spin echo and T2 fast spin echo, sagittal STIR, foraminal oblique sagittal T2 fast spin echo, and axial gradient echo or T2 fast spin echo through the cervical spine. COMPARISON: [facility], , C-SPINE WITHOUT CONTRAST, 04/20/2017, 12:05. FINDINGS: Image quality: Excellent. Alignment and Curvature: There is mild straightening of normal cervical lordosis. Bone Marrow: Marrow demonstrates normal overall signal. Spinal Cord: Visualized spinal cord has normal size and signal. No cerebellar tonsillar herniation. Paraspinous Soft Tissues: No paravertebral masses. Prevertebral soft tissues are normal in thickness. C2-C3: Normal appearance. C3-C4: Disc desiccation and broad-based disc bulge with mild bilateral uncovertebral hypertrophic changes with mild central canal stenosis, moderate right-sided neural foraminal narrowing and mild left-sided neural foraminal narrowing worsened since previous study. C4-C5: Disc desiccation is seen. Broad-based disc bulge and superimposed right lateral disc herniation with mqsv-nm-wizgpfmw central canal stenosis and moderate right worse than left bilateral neural foraminal narrowing. Bulging disc likely contacting bilateral C5 nerve roots. C5-C6: There is disc desiccation. Broad-based disc bulge and right lateral disc herniation with bilateral uncovertebral hypertrophic changes causing mild central canal stenosis, moderate right-sided neural foraminal narrowing and xetk-[id number] left-sided neural foraminal narrowing. There is likely compression of bilateral C6 nerve roots. C6-C7: Disc desiccation is seen. Diffuse disc bulge and bilateral uncovertebral hypertrophic changes with mild central canal stenosis and leeh-ia-vucdcxub bilateral neural foraminal narrowing. Bulging disc likely contacting bilateral exiting C7 nerve roots worse on the left side. C7-T1: Normal appearance. IMPRESSION: 1. Multilevel spondylitic changes throughout cervical spine causing various degrees of central canal stenosis and bilateral neural foraminal narrowing worsened compared to 2017 study. 2. No marrow edema. No acute fracture or dislocation. 3. No gross signal abnormality is seen in cervical spinal cord. Dictated by: Jewel Cohen M.D. on 09/19/2024 at 14:36 Approved by: Jewel Cohen M.D. on 09/19/2024 at 14:38
--- NOTE | 2024-09-18 | DI.MRI.S_ITS ---
PROCEDURE: MR LUMBAR SPINE WO CON INDICATIONS: screening TECHNIQUE: Noncontrast sagittal T1 spin echo and T2 fast echo, sagittal STIR, and T2 fast spin echo through the lumbar spine. In cases with scoliosis, additional coronal T2 fast spin echo may be performed. COMPARISON: [facility], MR, MR LUMBAR SPINE WO CON, 04/09/2021, 11:53. FINDINGS: Image quality: Excellent. Alignment and Curvature: There is normal bony alignment. Bone Marrow: Marrow is of normal overall signal. No acute vertebral body compression fractures. Spinal Cord: Conus medullaris terminates at the L1 level. Visualized cord demonstrates normal signal and size. Paraspinous Soft Tissues: No paravertebral masses. T12-L1: Normal appearance. L1-L2: Normal appearance. L2-L3: Mild disc desiccation. Broad-based disc bulge and bilateral facet arthrosis with hypertrophy of ligamentum flavum causing mild central canal stenosis, no significant neural foraminal narrowing. L3-L4: Mild disc desiccation. Broad-based disc bulge and bilateral facet arthrosis with hypertrophy of ligamentum flavum causing moderate central canal stenosis, moderate right-sided neural foraminal narrowing and tnjk-jy-snumidzi left-sided neural foraminal narrowing. Bulging disc likely contacting right L3 nerve root. L4-L5: Loss of disc height and disc desiccation. Diffuse disc bulge, superimposed central disc herniation and bilateral facet arthrosis with hypertrophy of ligamentum flavum with moderate central canal stenosis and severe bilateral neural foraminal narrowing. There is right worse than left bilateral L4 nerve root compression. L5-S1: Loss of disc height and disc desiccation. Diffuse disc bulge and bilateral facet arthrosis with mild central canal stenosis, moderate to severe right-sided neural foraminal narrowing and moderate left-sided neural foraminal narrowing. Bulging disc is seen contacting bilateral L5 nerve roots. IMPRESSION: 1. No marrow edema. No acute compression fracture. No paraspinous soft tissue abnormalities. 2. Multilevel spondylitic changes at L2-3 through L5-S1 levels causing various degrees of central canal stenosis and bilateral neural foraminal narrowing as described above. Overall finding has slightly worsened compared to 2020 study. Dictated by: Jewel Cohen M.D. on 09/19/2024 at 14:31 Approved by: Jewel Cohen M.D. on 09/19/2024 at 14:36
--- NOTE | 2024-09-18 | DI.MRI.S_ITS ---
PROCEDURE: MR THORACIC SPINE WO CON INDICATIONS: screening TECHNIQUE: Noncontrast sagittal T1 spine echo and T2 fast spin echo, sagittal STIR, and T2 fast spin echo through the thoracic spine. COMPARISON: None. FINDINGS: Image quality: Excellent. Alignment and Curvature: There is normal bony alignment. Bone Marrow: Marrow is of normal overall signal. No acute vertebral body compression fractures. Spinal Cord: Visualized spinal cord is normal in size and signal. Paraspinous Soft Tissues: No paravertebral masses. Miscellaneous: There is disc desiccation and central disc herniation at T5-6 through T9-10 levels causing wtam-vi-inoicaqd central canal stenosis, no significant neural foraminal narrowing. Finding is most notably at T7-8 level. IMPRESSION: 1. Mild spondylitic changes in mid to lower thoracic spine causing onvt-iw-kbxqqfqv central canal stenosis most notably at T7-8 level. No significant neural foraminal narrowing. 2. No marrow edema. No acute compression fracture or spondylolisthesis. 3. No abnormal thoracic spinal cord signal. Dictated by: Jewel Cohen M.D. on 09/19/2024 at 14:44 Approved by: Jewel Cohen M.D. on 09/19/2024 at 14:47
== END ==
PROVIDERS: Family Provider Family Medicine; PCP Family Medicine; Referring Provider Neurological Surgery; Visit Provider Neurological Surgery
DX: M47.12 Other spondylosis with myelopathy, cervical region (principal); M48.02 Spinal stenosis, cervical region; M47.814 Spondylosis without myelopathy or radiculopathy, thoracic region; M48.04 Spinal stenosis, thoracic region; M47.816 Spondylosis without myelopathy or radiculopathy, lumbar region; M47.817 Spondylosis without myelopathy or radiculopathy, lumbosacral region; M48.061 Spinal stenosis, lumbar region without neurogenic claudication; M48.07 Spinal stenosis, lumbosacral region; M54.50 Low back pain, unspecified
CPT/HCPCS: 72141; 72146; 72148

== ENCOUNTER → 2025-02-28 08:34 | Outpatient (CLI) | payer OTHER, SELFPAY ==
[2021-08-14 18:44] VITALS: BMI 26.9
--- NOTE | 2025-02-28 08:35 | DI.MG.S_ITS ---
MM screening mammo BI: 02/28/2025. BI-RADS: 1 CLINICAL: 59-year old female for bilateral screening mammogram. Tyrer-Cuzick lifetime risk of 12.8%. Current reported family history of breast cancer: maternal grandmother and mother. The patient is status-post reduction mammoplasty. PRIOR EXAMS 01/19/2024, 05/29/2022, 05/13/2021. MAMMOGRAPHY TECHNIQUE: 2D and 3D (tomosynthesis) digital mammographic views obtained, with additional images as needed for full coverage. Current study was also evaluated with a Computer Aided Detection (CAD) system. DENSITY B. There are scattered areas of fibroglandular density. MAMMOGRAPHY FINDINGS Bilateral: No suspicious mass, asymmetry, microcalcification, or other abnormality seen. IMPRESSION: * No evidence of malignancy. RECOMMENDATIONS Bilateral * Annual screening mammography. OVERALL ASSESSMENT CATEGORY BI-RADS-1: Negative. The [employer] recommends annual screening mammography beginning at age 40 for women with average risk of breast cancer. ELECTRONICALLY SIGNED: Paola Barrera M.D. on 02/28/2025 at 10:24:04 PM PT Interpreting Station ID: [id number]
== END ==
LOC: MAMMO 08:34
PROVIDERS: Family Provider Family Medicine; PCP Physician Assistant; Referring Provider Physician Assistant; Visit Provider Physician Assistant
DX: Z12.31 Encounter for screening mammogram for malignant neoplasm of breast (principal); Z80.3 Family history of malignant neoplasm of breast
CPT/HCPCS: 77063; 77067

== ENCOUNTER → 2025-04-27 10:28 | Outpatient (CLI) | payer OTHER, SELFPAY ==
[2021-08-14 18:44] VITALS: BMI 26.9
--- NOTE | 2025-04-27 10:29 | DI.US.S_ITS ---
US breast RT limited, MM diagnostic mammo unilat RT: 04/27/2025 BI-RADS: 1 CLINICAL: 59-year old female for right diagnostic mammogram and right diagnostic breast ultrasound. Tyrer-Cuzick lifetime risk of 12.8%. Current reported family history of breast cancer: maternal grandmother and mother. The patient is status-post reduction mammoplasty. The patient presents for evaluation of palpable abnormalities that have decreased in size in the right breast (2 months). PRIOR EXAMS 02/28/2025, 01/19/2024, 05/29/2022, 05/13/2021. MAMMOGRAPHY TECHNIQUE: 2D and 3D (tomosynthesis) digital mammographic views obtained, with additional images as needed for full coverage. Current study was also evaluated with a Computer Aided Detection (CAD) system. ULTRASOUND TECHNIQUE: TARGETED Right Breast Ultrasound: Real-time ultrasound exam was performed focused to area of clinical and/or imaging concern. Real-time chauhan scale imaging of the area of clinical interest was performed with image documentation. DENSITY Right: B. There are scattered areas of fibroglandular density. MAMMOGRAPHY FINDINGS Right (finding-1): Axillary Tail Outer, Posterior depth: A skin marker was placed in the area of concern, and no mammographic abnormalities are identified or to account for concern by the patient of a palpable lump. No suspicious mass, asymmetry, microcalcification, or other abnormality seen. ULTRASOUND FINDINGS Right (finding-1): Upper Outer at 11:30, 10 cm from nipple: There is mild heterogeneity to the subcutaneous fat on the cine images which could represent benign fat necrosis in the correct clinical context. There is no suspicious sonographic correlate for the patient's reported palpable abnormality in the right breast. IMPRESSION: Right * No evidence of malignancy. RECOMMENDATIONS Right * Clinical follow-up is recommended, and further management of palpable abnormalities or other focal signs or symptoms should be based on the results of clinical evaluation. If palpable abnormality or other concerning symptom persists or progresses, further clinical evaluation should be considered. Bilateral * Annual screening mammography. COMMENTS: Findings and recommendations were conveyed to the patient during today's evaluation. OVERALL ASSESSMENT CATEGORY BI-RADS-1: Negative. The [employer] recommends annual screening mammography beginning at age 40 for women with average risk of breast cancer. ELECTRONICALLY SIGNED: Paola Barrera M.D. on 04/27/2025 at 12:10:33 PM PT Interpreting Station ID: [id number]
== END ==
LOC: US 10:29
PROVIDERS: Family Provider Family Medicine; PCP Physician Assistant; Referring Provider Physician Assistant; Visit Provider Physician Assistant
DX: N63.11 Unspecified lump in the right breast, upper outer quadrant (principal); R92.321 Mammographic fibroglandular density, right breast; R22.2 Localized swelling, mass and lump, trunk; Z80.3 Family history of malignant neoplasm of breast
CPT/HCPCS: 76642; 77065; G0279

== ENCOUNTER 2025-05-20 09:59 | Emergency (ER) | payer OTHER, SELFPAY ==
[2021-08-14 18:44] VITALS: BMI 26.9
--- OUTSIDE RECORDS SUMMARY | 2025-05-20 10:01 | XMS_ITS ---
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 She was seen on April 12, 2025, at which time Excision (Repair: Intermediate) was performed. The pathology shows: Biopsy Site Changes on the left anterior shoulder. We recommendedthe following: Reassure : margins clear.The patient presents for suture removal. Medications Medication Generic Name RxNorm Strength Strength Unit Route Dose Dose Form Frequency Date Started Date Ended Status Indication Sig alprazolam alprazol am 020529 0.5 mg Oral table t,dis integ ratin g active atorvastati n atorvast atin 10 mg Oral table t suspend ed bupropion HCl bupropio n HCl 100 mg Oral table t suspend ed cyclobenzap rine cycloben zaprine 200528 10 mg Oral table t active escitalopra m oxalate escitalo pram oxalate 5 mg Oral table t suspend ed hydrochloro thiazide hydrochl orothiaz casa 25 mg Oral table t active lisinopril lisinopr il 2.5 mg Oral table t active Prozac fluoxeti [place] 849814 60 mg Oral capsu le active Problems Problem Code Type Status Date of Diagnosis Date of Resolution Surgical follow-up (finding) 579800558(S NOMED) Diagnosis active 04/27/2025 Squamous cell carcinoma of upper extremity (disorder) 512268690(S NOMED) Diagnosis active 04/12/2025 Neoplasm of uncertain behavior of skin (disorder) 21651911(SN OMED) Diagnosis active 02/09/2025 History of malignant neoplasm of skin (situation) 355149499(S NOMED) Diagnosis active 02/09/2025 Melanocytic nevus of trunk (disorder) 198476469(S NOMED) Diagnosis active 02/09/2025 Seborrheic keratosis (disorder) 555959556(S NOMED) Diagnosis active 02/09/2025 Hemangioma of skin and subcutaneous tissue (disorder) 238535938(S NOMED) Diagnosis active 02/09/2025 Disorder of pigmentation (disorder) 260698384(S NOMED) Diagnosis active 02/09/2025 Skin changes due to chronic exposure to non-ionizing radiation (disorder) 263680498(S NOMED) Diagnosis active 02/09/2025 Patient encounter status (finding) 001787595(S NOMED) Diagnosis active 02/09/2025 Neoplasm of uncertain behavior of skin (disorder) 36875886(SN OMED) Diagnosis active 11/12/2023 Verruca vulgaris (disorder) 29374499(SN OMED) Diagnosis active 11/12/2023 Seborrheic keratosis (disorder) 931958443(S NOMED) Diagnosis active 11/12/2023 Disorder of pigmentation (disorder) 952554933(S NOMED) Diagnosis active 11/12/2023 Skin changes due to chronic exposure to non-ionizing radiation (disorder) 999258535(S NOMED) Diagnosis active 11/12/2023 Melanocytic nevus of trunk (disorder) 852795928(S NOMED) Diagnosis active 04/22/2022 Seborrheic keratosis (disorder) 094242282(S NOMED) Diagnosis active 04/22/2022 Hemangioma of skin and subcutaneous tissue (disorder) 621840369(S NOMED) Diagnosis active 04/22/2022 Disorder of pigmentation (disorder) 623156322(S NOMED) Diagnosis active 04/22/2022 Skin changes due to chronic exposure to non-ionizing radiation (disorder) 053594586(S NOMED) Diagnosis active 04/22/2022 Patient encounter status (finding) 248506105(S NOMED) Diagnosis active 04/22/2022 History of malignant neoplasm of skin (situation) 404572811(S NOMED) Diagnosis active 04/22/2022 Family history of malignant neoplasm (situation) 762872211(S NOMED) Diagnosis active 04/22/2022 Personal history of other malignant neoplasm of skin Z85.828(ICD -10) Diagnosis active 03/26/2020 Family history of malignant neoplasm of other organs or systems Z80.8(ICD-1 0) Diagnosis active 03/26/2020 Melanocytic nevi of trunk D22.5(ICD-1 0) Diagnosis active 03/26/2020 Other seborrheic keratosis L82.1(ICD-1 0) Diagnosis active 03/26/2020 Other melanin hyperpigmentation L81.4(ICD-1 0) Diagnosis active 03/26/2020 Hemangioma of skin and subcutaneous tissue D18.01(ICD- 10) Diagnosis active 03/26/2020 Actinic keratosis L57.0(ICD-1 0) Diagnosis active 03/26/2020 Personal history of other malignant neoplasm of skin Z85.828(ICD -10) Diagnosis active 02/25/2019 Melanocytic nevi of trunk D22.5(ICD-1 0) Diagnosis active 02/25/2019 Freckles L81.2(ICD-1 0) Diagnosis active 02/25/2019 Other melanin hyperpigmentation L81.4(ICD-1 0) Diagnosis active 02/25/2019 Family history of malignant neoplasm of other organs or systems Z80.8(ICD-1 0) Diagnosis active 02/25/2019 Arthritis (disorder) 7316279(SNO MED) Problem active Hearing loss (disorder) 31709733(SN OMED) Problem active Increased blood pressure (finding) 27631185(SN OMED) Problem active Hearing loss (disorder) 59462528(SN OMED) Problem active Anemia (disorder) 574305570(S NOMED) Problem active Anxiety disorder (disorder) 849372275(S NOMED) Problem active Asthma (disorder) 933467440(S NOMED) Problem active Depressive disorder (disorder) 53677844(SN OMED) Problem active History of squamous cell carcinoma of skin (situation) 203037222(S NOMED) Problem active Tension-type headache (disorder) 473688769(S NOMED) Problem active Eczema (disorder) 91518503(SN OMED) Problem active Psoriasis (disorder) 3299356(SNO MED) Problem active Squamous cell carcinoma (disorder) 710059837(S NOMED) Problem active Sunburn of second degree (disorder) 864790335(S NOMED) Problem active Results No data Encounters Service provided at [address], [address], [place] [id number]. Office phone number is [phone]. Office fax number is [phone]. Encounter Diagnosis Location Date / Time Type Suture Removal Encounter (Z48.02) [facility] 025 17:00:00 [facility] [id number] Reason For Referral No data Procedures Procedure Date Removal of suture (procedure) 04/27/2025 12:00 am UTC Excision (procedure) 04/12/2025 12:00 am UTC Shave biopsy (procedure) 02/09/2025 12:0 0 am UTC Shave biopsy (procedure) 11/12/2023 12:0 0 am UTC Cryotherapy of skin lesion with liquid n itrogen (procedure) 11/12/2023 12:00 am UTC Cryotherapy of skin lesion with liquid n itrogen (procedure) 03/26/2020 12:00 am UTC History of appendectomy (situation) History of colostomy (situation) Surgical biopsy of skin (procedure) Excision of squamous cell carcinoma (pro cedure) Excision of squamous cell carcinoma (pro cedure) History of colostomy (situation) History of appendectomy (situation) Surgical biopsy of skin (procedure) Excision of squamous cell carcinoma (pro cedure) History of colostomy (situation) History of appendectomy (situation) Surgical biopsy of skin (procedure) Excision of squamous cell carcinoma (pro cedure) History of appendectomy (situation) Surgical biopsy of skin (procedure) Excision of appendix (procedure) Arthroscopy of knee joint (procedure) Replacement of bilateral knee joints (pr ocedure) Biopsy of skin (procedure) Decompression of median nerve (procedure ) Excision of squamous cell carcinoma (pro cedure) History of appendectomy (situation) Replacement of bilateral knee joints (pr ocedure) Surgical biopsy of skin (procedure) Arthroscopy of knee joint (procedure) Decompression of median nerve (procedure ) Excision of appendix (procedure) Biopsy of skin (procedure) Surgical biopsy of skin (procedure) Arthroscopy of knee joint (procedure) Biopsy of skin (procedure) Excision of appendix (procedure) Decompression of median nerve (procedure ) Excision of squamous cell carcinoma (pro cedure) History of appendectomy (situation) Replacement of bilateral knee joints (pr ocedure) Arthroscopy of knee joint (procedure) Excision of appendix (procedure) History of appendectomy (situation) Replacement of bilateral knee joints (pr ocedure) Biopsy of skin (procedure) Excision of squamous cell carcinoma (pro cedure) Decompression of median nerve (procedure ) Surgical biopsy of skin (procedure) Biopsy of skin (procedure) Surgical biopsy of skin (procedure) Arthroscopy of knee joint (procedure) History of appendectomy (situation) Replacement of bilateral knee joints (pr ocedure) Excision of squamous cell carcinoma (pro cedure) Decompression of median nerve (procedure ) Excision of appendix (procedure) Review Of Systems No Data Assessment 1.Suture Removal EncounterSuture Removal (Global Period)CounselingPhoto-Documentation:. Plan of Care No data Instructions * I counseled the patient regarding the following:Skin Care: Surgical sites should be cleansed with sterile saline. Afterwards, topical antibiotics and non-adhesive dressing can be applied.Expectations: Sutured wounds tend to have 50% of the strength of normal skin at the time of suture removal. Try avoiding rigorous exercise or lifting greater than 10 pounds.Contact office if: you develop pain, redness, tenderness or pus at the surgical site. Social History Code Activity Start Date End Date [id number] (SNOMED) Never smoker Sex female Sexual orientation Straight (Heterosexu al) Gender identity Unspecified Vital Signs No data
[2025-05-20 10:07] VITALS: BP 136/84; PULSE 64; RESP 14; TEMP 36.4; O2SAT 100; BMI 25.9
--- NOTE | 2025-05-20 10:12 | ED.HA ---
HPI - Headache General Chief Complaint: Headache Stated Complaint: Hit head/Sent by EMS Time Seen by Provider: 05/20/25 10:09 Mode of arrival: Ambulatory History of Present Illness HPI Narrative: 59-year-old presents with scalp laceration after hitting head against a piece of wood on the edge of the table. Patient unsure of last tetanus shot. Patient denies any loss of consciousness, blurry vision, neck pain, nausea, vomiting, chest pain, shortness of breath. Other than what is stated 14 point review of system is negative. Related Data Home Medications ?Medication ?Instructions ?Recorded ?Confirmed pantoprazole 40 mg tablet,delayed 40 mg PO QDAY ##0 10/13/16 08/14/21 release sumatriptan succinate 25 mg tablet 25 mg PRN PRN Migraine Headache ##0 10/13/16 08/14/21 (Imitrex) fluticasone propionate 50 9.9 spray intranasal SEE 08/14/21 08/14/21 mcg/actuation nasal INSTRUCTIONS spray,suspension (Flonase Allergy Relief) fluvoxamine 100 mg tablet 100 mg PO BID 08/14/21 08/14/21 gabapentin 300 mg tablet 300 mg PO BEDTIME 08/14/21 08/14/21 Previous Rx's ?Medication ?Instructions ?Recorded hydrochlorothiazide 25 mg tablet 25 mg PO QDAY #90 tabs 11/19/16 albuterol sulfate 90 mcg/actuation 1 puff INH PRN PRN #3 inhalations 02/02/17 aerosol inhaler (Ventolin HFA) atorvastatin 10 mg tablet (Lipitor) 10 mg PO HS #90 tabs 02/02/17 cyclobenzaprine 10 mg tablet 10 mg PO HSP PRN #90 tabs 02/02/17 lisinopril 10 mg tablet 10 mg PO QDAY #90 tabs 02/02/17 docusate sodium 100 mg capsule 100 mg PO BID PRN constipation #60 08/15/21 caps hydroxyzine pamoate 25 mg capsule 25 mg PO Q4HR PRN muscle spasm 08/15/21 #120 caps oxycodone 5 mg tablet 5 mg PO Q6H PRN pain, severe #30 08/15/21 tabs Allergies Allergy/AdvReac Type Severity Reaction Status Date / Time No Known Allergies (NO KNOWN Allergy Unknown Verified 05/20/25 10:07 ALLERGIES) Review of Systems Review of Systems ROS Unobtainable: All systems reviewed & are unremarkable except as noted in HPI and below Patient History Medical History HLD (hyperlipidemia) HTN (hypertension) Spinal stenosis Surgical History Status post appendectomy Status post breast reduction Family History Father Age: 83 Heart disease Mother Age: 81 Breast cancer Diabetes mellitus Hypertension High cholesterol Social History household members: spouse Smoking Status: Unknown if ever smoked alcohol intake: current Smoking Status: Unknown if ever smoked alcohol intake frequency: a few times a week Exam Narrative Exam Narrative: GENERAL: [59] year old patient appears stated age. Well-developed patient, in mild distress. HEAD: Atraumatic. Normocephalic. EYES: Pupils equal round and reactive. Extraocular motions intact. No scleral icterus. No injection or drainage. NECK: Trachea midline. Non tender EXTREMITIES: No edema or joint tenderness. BACK: Nontender without deformity or crepitance. No flank tenderness. NEURO: AOx3. SKIN: No rash or erythema of visible areas Initial Vital Signs Initial Vital Signs: Vital Signs Temperature 97.5 F L 05/20/25 10:07 Pulse Rate 64 05/20/25 10:07 Respiratory Rate 14 05/20/25 10:07 Blood Pressure 136/84 05/20/25 10:07 Pulse Oximetry 100 05/20/25 10:07 Oxygen Delivery Method Room Air 05/20/25 10:07 Procedures Laceration Repair Laceration 1: Time of procedure: :22 Site: scalp Size (cm): 0.5 Description: linear Depth: simple, single layer Local Anesthetic: lidocaine 1% and with epi Amount of anesthesia used (mL): 2 Pre-repair: cleansed with chlorhexadine Skin layer closed with: briana Number of sutures: 2 Course Vital Signs Vital signs: Vital Signs - 8 hr 05/20/25 10:07 Temperature 97.5 F L Pulse Rate 64 Respiratory Rate 14 Blood Pressure 136/84 Pulse Oximetry 100 Oxygen Delivery Method Room Air MDM - Headache MDM Narrative Medical decision making narrative: All lab work, vital signs, nurse triage note, medication list, previous ER visits, and all imaging studies reviewed. Tetanus updated on today's visit. Neoga placed. Differential diagnosis laceration tetanus cellulitis. Staple removal 7-10 days. 2 briana placed Discharge Plan Departure Patient Disposition: Home Clinical Impression: Laceration of scalp Instructions: DI for Laceration Repair -- Briana Activity Restrictions/Additional Instructions: Return with new or worsening symptoms. Staple removal in 7-10 days with PCP. Prescriptions: No Action sumatriptan succinate [Imitrex] 25 MG tablet 25 mg PRN PRN (Reason: Migraine Headache) Qty: 0 pantoprazole 40 MG tablet,delayed release (DR/EC) 40 mg PO QDAY Qty: 0 hydrochlorothiazide 25 MG tablet 25 mg PO QDAY Qty: 90 3RF lisinopril 10 MG tablet 10 mg PO QDAY Qty: 90 3RF cyclobenzaprine 10 MG tablet 10 mg PO HSP PRNQty: 90 3RF atorvastatin [Lipitor] 10 MG tablet 10 mg PO HS Qty: 90 3RF albuterol sulfate [Ventolin HFA] 90 MCG/PUFF HFA aerosol inhaler 1 puff INH PRN PRNQty: 3 3RF fluvoxamine 100 mg Tablet 100 mg PO BID gabapentin 300 mg Tablet 300 mg PO BEDTIME fluticasone propionate [Flonase Allergy Relief] 9.9 ML spray,suspension 9.9 spray Intranasal SEE INSTRUCTIONS docusate sodium 100 mg Capsule 100 mg PO BID PRN (Reason: constipation) Qty: 60 1RF hydroxyzine pamoate 25 mg Capsule 25 mg PO Q4HR PRN (Reason: muscle spasm) Qty: 120 0RF oxycodone 5 mg Tablet 5 mg PO Q6H PRN (Reason: pain, severe) Qty: 30 0RF Referrals: Nikunj Calderon PA-C [Primary Care Provider, Medical] Stand Alone Forms: Patient Portal/API
[2025-05-20] MEDS: TET,DIPH,PERTUSS(ACELL),VAC/PF 0.5 ML SYRINGE IM (10:17)
[2025-05-20] MEDS: LIDOCAINE 1% W/EPI 10ML 4 ML INJ (10:17)
== END 2025-05-20 10:25 | disposition home or self-care (01) ==
PROVIDERS: Emergency Provider Family Medicine; Family Provider Family Medicine; PCP Physician Assistant
DX: S01.01XA Laceration without foreign body of scalp, initial encounter (principal); Z23 Encounter for immunization; W22.03XA Walked into furniture, initial encounter
CPT/HCPCS: 12001; 99283; 90715